=== PATIENT | female | born 1970 | race Caucasian/White ===

== ENCOUNTER 2017-02-17 20:05 | Emergency (ER) | payer OTHER ==
--- NOTE | ~2017-02-17 | CR210 ---
[facility] A Service of [facility] & [facility] RADIOLOGY TEXT RESULTS PATIENT: SARAH PATEL LOCATION: [facility] : 72 UNIT #: [id number] AGE: [address]: Berny Santiago MD SEX: F ORDER DR: [id number] [facility] [address] [place], [place] [address] [id number] E MR#: [id number] Acc #: [id number] NAME: SARAH PATEL : 1970 SEX: F STUDY DATE/TIME: 02/17/2017 20:53 UNIT: [facility] ROOM: STUDY DESCRIPTION: CR Ribs Uni 2 View W PA Ch Lt Attending Physician: Berny Santiago M.D. Ordering Physician: Berny Santiago M.D. Primary Care Physician: Caterina Vincent M.D. MEDICAL IMAGING REPORT This report is preliminary unless electronic signature is present EXAM Left rib series with PA chest. INDICATION Posterior rib pain today after injury. There are no comparisons available at this time. FINDINGS PA view of the chest is unremarkable. AP and oblique views of the left ribs demonstrate no evidence of displaced rib fracture. IMPRESSION No evidence of displaced rib fracture. Dictated by... Larry Carlisle M.D. THIS IS AN ELECTRONICALLY VERIFIED REPORT Larry Carlisle M.D. at 02/18/2017 10:05 AM JOHN PAUL/justo TD: 02/18/2017 00:24 JOB #: [id number] MEDICAL IMAGING REPORT Page 1 of 1 COPY
[~2017-02-17 20:05] MED LIST: ACETAMINOPHEN PO; ALPRAZOLAM PO; ASPIRIN81 M1 PO; AUGMENTIN PO; BIOTIN10 MG PO; BYETTA10 MCG/0.0 INJ; CELEBREX PO; CELEXA PO; CERTAGEN PO; CRANBERRY TABL1 EACH PO; CRANBERRY1000 MG PO; FISH OIL 1,0001 CAP PO; GAVISCON LIQUI355 ML PO; GLYBURIDE PO; LISINOPRIL PO; METFORMIN PO; MUCINEX PO; NIACIN250 M1 PO; PERCOCET5/325 PO; PHENERGAN25 MG PO; SUPER B COMPLEX1 CAP PO; VITAMIN C; VITAMIN C1000 M2 PO
== END 2017-02-17 21:49 | disposition home or self-care (01) ==
LOC: CED 20:05
DX: S20.212A Contusion of left front wall of thorax, initial encounter (principal); E11.9 Type 2 diabetes mellitus without complications; X58.XXXA Exposure to other specified factors, initial encounter; Y92.9 Unspecified place or not applicable
CPT/HCPCS: 71101; 99283